=== PATIENT | female | born 1985 | race Caucasian/White ===

== ENCOUNTER 2020-10-07 11:57 | Outpatient (CLI) | payer MEDICARE, MEDICAID ==
--- NOTE | 2020-10-07 14:11 | Ultrasound Report ---
PROCEDURE: OB Biophysical Profile INDICATIONS: POSTTERM OUTSIDE/PRIOR DATING DATA: Last menstrual period (LMP): 12/26/2019. LMP-based estimated date of delivery (PANKAJ): 10/01/2020. First dating scan (date and location): 02/19/2020. Estimated date of delivery (PANKAJ) from first dating scan: 10/04/2020. TECHNIQUE: Real-time scanning was performed of the fetus, with image documentation and biometric ashley surements. Biophysical profile was also obtained. Endovaginal scanning: Not performed COMPARISON: 05/06/2020, 05/28/2020 FINDINGS: General: A single living intrauterine gestation is present. Presentation: Vertex Placenta: Placental position is anterior, without previa. Amniotic fluid index: 2.3 cm, abnormal low, out of range for gestational age. heart rate: 147 beats per minute. Maternal cervical canal: Grossly normal Estimated gestational age from initial scan: 40 weeks 3 days. Biophysical profile: Tone: 2 points. Movement: 2 points. Respiration: 2 points. Largest pocket of fluid: 0 points. Largest pocket 2.3 cm IMPRESSION: Single living intrauterine fetus in vertex presentation. Oligohydramnios as above. Biophysical profile 6/8 points Findings were personally telephoned to Dr. Rider's office by the wardrobe coordinator at 1230 hours on 020 Reviewed by: Isma Westbrook MD on 10/07/2020 2:10 PM PST Approved by: Isma Westbrook MD on 10/07/2020 2:10 PM PST Station ID: [id number]
== END 2020-10-07 11:58 | disposition home or self-care (01) ==
LOC: DI 11:57
PROVIDERS: ATTEND Midwife
DX: O48.0 Post-term pregnancy (principal); O41.03X0 Oligohydramnios, third trimester, not applicable or unspecified; Z3A.40 40 weeks gestation of pregnancy

== ENCOUNTER 2020-12-13 08:00 | Outpatient (CLI) | payer MEDICARE, MEDICAID | END 2020-12-13 23:59 | disposition home or self-care (01) | LOC: LAB.F 08:00 | PROVIDERS: ATTEND Registered Nurse | DX: Z30.09 Encounter for other general counseling and advice on contraception (principal) ==

== ENCOUNTER 2021-03-20 08:00 | Outpatient (CLI) | payer MEDICARE, MEDICAID ==
[2021-03-20 21:14] LABS: CHLAMYDIA TRACHOMATIS DNA NEGATIVE (NEGATIVE); NEISSERIA GONORRHOEAE DNA NEGATIVE (NEGATIVE); TRICHOMONAS VAGINALIS DNA NEGATIVE (NEGATIVE)
== END 2021-03-20 23:59 | disposition home or self-care (01) ==
LOC: MERGE 08:00 → LAB.WC 08:00
PROVIDERS: ATTEND Obstetrics & Gynecology
DX: Z30.431 Encounter for routine checking of intrauterine contraceptive device (principal)
CPT/HCPCS: 87491; 87591; 87661

== ENCOUNTER 2021-04-09 16:36 | Outpatient (CLI) | payer MEDICARE, MEDICAID ==
--- NOTE | 2021-04-10 12:31 | Ultrasound Report ---
PROCEDURE: Pelvic w/Transvaginal INDICATIONS: IUD CHECK TECHNIQUE: Real-time scanning was performed of the pelvic organs, with image documentation. Additional endovagi nal scanning was necessary due to incomplete visualization of the adnexal and endometrial structures by transabdominal scanning. COMPARISON: OB ultrasound 10/07/2020. FINDINGS: No pathologic free abdominal or pelvic fluid. Uterus: Uterus is retroverted and measures 7.5 x 4.2 x 4.6 cm. The endometrium measures 0.5 cm in co mbined thickness. No internal vascularity within the endometrium on color Doppler interrogation. An I UD appears in appropriate position, extending into the fundal endometrium. Ovaries: The right ovary measures 2.3 x 1.3 x 1.6 cm and the left ovary measures 2.4 x 2.0 x 2.7 cm. No adnexal masses. There are a few small thin-walled cysts within the ovaries consistent with follic les, including a dominant follicle in the left ovary measuring up to 1.4 cm. IMPRESSION: 1. IUD appears in appropriate position extending into the fundal endometrium. Reviewed by: Yonas Tidwell MD on 04/10/2021 12:30 PM PDT Approved by: Yonas Tidwell MD on 04/10/2021 12:30 PM PDT Station ID: [id number]
== END 2021-04-09 16:37 | disposition home or self-care (01) ==
LOC: DI 16:36
PROVIDERS: ATTEND Obstetrics & Gynecology
DX: Z30.431 Encounter for routine checking of intrauterine contraceptive device (principal)

== ENCOUNTER 2023-07-27 12:20 | Emergency (ER) | payer MEDICAID, MEDICARE ==
[2023-07-27 12:57] LABS: BASOPHILS # (AUTO) 0.1 10^3/uL (0.0-0.1); BASOPHILS % (AUTO) 0.7 %; EOSINOPHILS # (AUTO) 0.1 10^3/uL (0.0-0.7); EOSINOPHILS % (AUTO) 1.1 %; HCT - HEMATOCRIT 43.3 % (37.0-47.0); HGB - HEMOGLOBIN 14.1 g/dL (12.0-16.0); LYMPHOCYTES # (AUTO) 1.8 10^3/uL (1.5-3.5); LYMPHOCYTES % (AUTO) 19.7 %; MEAN CORPUSCULAR HEMOGLOBIN 29.4 pg (27.0-31.0); MEAN CORPUSCULAR HGB CONC 32.6 g/dL (32.0-36.0); MEAN CORPUSCULAR VOLUME 90.4 fL (81.0-99.0); MEAN PLATELET VOLUME 10.4 fL (7.9-10.8); MONOCYTES # (AUTO) 0.5 10^3/uL (0.0-1.0); MONOCYTES % (AUTO) 5.9 %; NEUTROPHILS # (AUTO) 6.4 10^3/uL (1.5-6.6); NEUTROPHILS % (AUTO) 72.4 %; PLT - PLATELET COUNT 319 10^3/uL (130-450); RED BLOOD COUNT 4.79 10^6/uL (4.20-5.40); RED CELL DISTRIBUTION WIDTH 13.5 % (12.0-15.0); WHITE BLOOD COUNT 8.9 x10^3/uL (4.8-10.8)
[2023-07-27 13:11] LABS: BILIRUBIN,URINE NEGATIVE (NEGATIVE); GLUCOSE, URINE (UA) NEGATIVE (NEGATIVE); KETONES,URINE (UA) NEGATIVE (NEGATIVE); LEUKOCYTE ESTERASE, URINE NEGATIVE (NEGATIVE); NITRITE,URINE NEGATIVE (NEGATIVE); OCCULT BLOOD,URINE TRACE-INTA (NEGATIVE); PH,URINE 5.5 PH (5.0-7.5); PROTEIN,URINE NEGATIVE (NEGATIVE); UROBILINOGEN,URINE 0.2 (NORMAL) E.U./dL (NORMAL)
[2023-07-27 13:12] LABS: CLARITY,URINE CLEAR (CLEAR)
[2023-07-27 13:13] LABS: HCG UR QUAL NEGATIVE
[2023-07-27 13:15] LABS: ALBUMIN 4.9 g/dL (3.2-5.5); ALBUMIN/GLOBULIN RATIO 1.6 (1.0-2.2); BILIRUBIN,TOTAL 0.5 mg/dL (0.2-1.0); CREATININE 0.7 mg/dL (0.6-1.3); TOTAL PROTEIN 7.9 g/dL (6.4-8.9)
--- NOTE | 2023-07-27 15:46 | ED Physician Documentation ---
PD HPI ABD PAIN - Stated complaint Stated Complaint: ABD PX/SWELLING/NUSEA - Chief complaint Chief Complaint: Abd Pain - History obtained from History obtained from: Patient - Additional information Additional information: 38-year-old female with no significant past medical history presents by private vehicle from home for 3 days of abdominal pain, nausea, bloating. Pain initially started in the right lower quadrant, however it is now all across her abdomen. She is a single mother and was told by her family members that she needed to be evaluated for possible appendicitis. No medications taken at home for symptoms. Denies fevers, chills, nausea, vomiting, constipation, diarrhea, other complaints at this time. Has IUD, LMP 1 week previously Review of Systems Constitutional: denies: Fever, Chills Cardiac: denies: Chest pain / pressure, Palpitations, Calf pain Respiratory: denies: Dyspnea, Cough, Wheezing GI: reports: Abdominal Pain, Other (bloating). denies: Nausea, Vomiting : denies: Dysuria, Frequency, Hesitancy Skin: denies: Rash, Lesions, Abrasion (s) Musculoskeletal: denies: Neck pain, Back pain, Extremity pain PD PAST MEDICAL HISTORY - Allergies Allergies/Adverse Reactions: Allergies Allergy/AdvReac Type Severity Reaction Status Date / Time ciprofloxacin [From Cipro] Allergy Rash Verified 07/27/23 12:28 PD ED PE NORMAL - Vitals Vital signs reviewed: Yes - General General: Alert and oriented X 3, No acute distress, Well developed/nourished - HEENT HEENT: Atraumatic, PERRL - Neck Neck: Supple, no meningeal sign - Cardiac Cardiac: RRR, Strong equal pulses - Respiratory Respiratory: No respiratory distress, Clear bilaterally - Abdomen Abdomen: Soft, Non tender, Non distended - Derm Derm: Normal color, Warm and dry, No rash - Extremities Extremities: No deformity, No tenderness to palpate, Normal ROM s pain, No edema - Neuro Neuro: Alert and oriented X 3, bowl turner 2-12 intact, No motor deficit, Normal speech - Psych Psych: Normal mood, Normal affect Results - Vitals Vitals: Vital Signs - 24 hr 07/27/23 07/27/23 12:28 15:50 Temperature 36.6 C Heart Rate 68 60 Respiratory 18 16 Rate Blood Pressure 130/97 H 148/78 H O2 Saturation 98 100 Oxygen O2 Source Room air - Labs Labs: Laboratory Tests 07/27/23 07/27/23 07/27/23 12:41 12:51 12:51 WBC 8.9 RBC 4.79 Hgb 14.1 Hct 43.3 MCV 90.4 MCH 29.4 MCHC 32.6 RDW 13.5 Plt Count 319 MPV 10.4 Neut # (Auto) 6.4 Lymph # (Auto) 1.8 Rooks # (Auto) 0.5 Eos # (Auto) 0.1 Baso # (Auto) 0.1 Absolute Nucleated RBC 0.00 Nucleated RBC % 0.0 Sodium 139 Potassium 4.0 Chloride 104 Carbon Dioxide 27 Anion Gap 8.0 BUN 14 Creatinine 0.7 Estimated GFR (MDRD) 93 Glucose 97 Calcium 10.0 Total Bilirubin 0.5 AST 16 ALT 14 Alkaline Phosphatase 63 Total Protein 7.9 Albumin 4.9 Globulin 3.0 Albumin/Globulin Ratio 1.6 Lipase 11 Urine Color YELLOW Urine Clarity CLEAR Urine pH 5.5 Ur Specific [place] 1.010 Urine Protein NEGATIVE Urine Glucose (UA) NEGATIVE Urine Ketones NEGATIVE Urine Occult Blood TRACE-INTA Urine Nitrite NEGATIVE Urine Bilirubin NEGATIVE Urine Urobilinogen 0.2 (NORMAL) Ur Leukocyte Esterase NEGATIVE Ur Microscopic Review NOT INDICATED Urine Culture Comments NOT INDICATED Urine HCG, Qual NEGATIVE PD Medical Decision Making - ED course Complexity details: reviewed results, re-evaluated patient, considered differential, d/w patient ED course: Well-appearing patient with 3 days of symptoms. Vital signs are reviewed. Abdomen is soft, no reproducible tenderness to light or deep palpation. Laboratory work is reviewed, there is no leukocytosis, no left shift, no urinary tract infection. Given the duration and nature of patient's symptoms as well as benign physical exam I engaged in shared decision-making with the patient. At this time there is not appear to be an emergent need for a CT of the abdomen and pelvis. I offered a CT if patient was truly concerned that she may have appendicitis, however exam and laboratory work do not support that diagnosis. Patient stated that at this time she is reassured by normal labs and does not want a CT scan at this time. I recommended Tylenol Motrin as needed for pain, and recommended a gentle laxative to see if this improves her pain and her bloating. Strict ED return precautions discussed with patient at bedside. Recommended PCP follow-up. Departure - Departure Disposition: 01 Home, Self Care Clinical Impression: Bloating Abdominal pain Qualifiers: Abdominal location: generalized Qualified Code(s): R10.84 - Generalized abdominal pain Condition: Stable Instructions: Abdominal Pain Comments: Your laboratory work today was completely normal. There is no evidence of infection or inflammation, your liver and pancreas labs are normal and there is no evidence of urinary infection. After discussion with you we decided to not do a CT scan today. I highly recommend that you follow-up with your primary care physician. I recommend Tylenol and Motrin at home as needed for pain. I also recommend trialing a gentle laxative such as MiraLAX or senna. If you have continued pain or your pain worsens I recommend repeat evaluation in the emergency department as a CT scan may be indicated at this time. Forms: PCP List Discharge Date/Time: 07/27/23 15:52
[2023-07-27 15:52] VITALS: BP 148/78; O2SAT 100
== END 2023-07-27 15:52 | disposition home or self-care (01) ==
LOC: ED 12:20
DX: R10.84 Generalized abdominal pain (principal); R14.0 Abdominal distension (gaseous)
CPT/HCPCS: 36415; 80053; 81001; 81003; 81025; 83690; 85025; 87086; 99283